=== PATIENT | female | born 1985 | race Caucasian/White ===

== ENCOUNTER 2023-09-01 09:04 | Emergency (ER) | payer SELFPAY ==
[2023-09-01] VITALS (11 sets, daily range): BP systolic 181–226; BP diastolic 91–129; PULSE 54–88; RESP 14–21; TEMP 36.2; O2SAT 96–100
--- NOTE | ~2023-09-01 | CT_ITS ---
CT of the Abdomen and Pelvis: Indication: Abdominal pain Technique: 2.5 mm axial scans were obtained through the abdomen and pelvis following intravenous adm inistration of 100 cc of Omnipaque 350. Dose reduction technique was used on this scan by utilizing a utomated exposure control and iterative reconstruction technique. The dose-length product (DLP) was 4 76.50 mGy-cm. Findings: Scans through the lung bases are unremarkable. The liver, spleen, pancreas, gallbladder, adrenals and left kidney are within normal limits. There is a 3 mm right UVJ stone with mild right hydroureteronephrosis and right perinephric fluid. No evidenc e of aortic aneurysm. No lymphadenopathy. No bowel obstruction or bowel wall thickening. There is no evidence to suggest acute appendicitis. Images through the pelvis were performed. Urinary bladder unremarkable. No adnexal mass seen. No asci esequiel. Impression: 3 mm right UVJ stone with mild right hydroureteronephrosis and right perinephric fluid. Calyceal rupt ure is a consideration. Reviewed, dictated and finalized at location . CTOR OF DISTANCE LEARNING Impression: 3 mm right UVJ stone with mild right hydroureteronephrosis and right perinephri c fluid. Calyceal rupture is a consideration.
[2023-09-01 10:30] LABS: Estimated CRCL calculation 77 ml/min; Estimated Glomerular Filt Rate > 60
[2023-09-01 10:50] LABS: Basophils Absolute Auto 0.1 K/mm3 (0.0-0.1); Basophils Percent Auto 0.3 % (0.2-1.2); Eosinophils Absolute Auto 0.1 K/mm3 (0-0.3); Eosinophils Percent Auto 0.5 % (0-4.4); Hemoglobin 13.6 g/dL (12.0-15.0); Immature Granulocyte Absolute 0.08 K/mm3 (0.00-0.031); Immature Granulocyte Percent A 0.5 % (0-0.5); Lymphocytes Absolute Auto 1.46 K/mm3 (0.9-3.2); Lymphocytes Percent Auto 8.4 % (18.3-44.2); Mean Corpuscular HGB Conc 31.6 g/dl (32-36); Mean Corpuscular Hemoglobin 29.2 pg (26-34); Mean Corpuscular Volume 92.5 fl (80-100); Mean Platelet Volume 10.9 fl (7.4-10.4); Monocytes Absolute Auto 0.8 K/mm3 (0.1-0.6); Monocytes Percent Auto 4.6 % (2.6-8.5); Neutrophils Absolute Auto 14.8 K/mm3 (1.3-6.7); Neutrophils Percent Auto 85.7 % (45.5-73.1); Platelet Count Result 346 k/mm3 (150-375); Red Blood Count 4.65 M/mm3 (4.2-5.4); Red Cell Distribution Width 13.8 % (11.5-14.5); White Blood Count 17.3 K/mm3 (4.5-10.0)
--- NOTE | 2023-09-01 10:52 | ED.ABDPAIN ---
HPI - Abdominal Pain General Chief Complaint: Abdominal Pain Stated Complaint: abd pain Time Seen by Provider: 09/01/23 10:08 Source: patient Limitations: no limitations History of Present Illness HPI narrative: Patient is a 38-year-old female presents to the emergency department complaining of abdominal pain. Patient states the pain started around 7:00 a.m. this morning while lying in bed resting comfortably woke her from sleep, feels like a stabbing pain with intermittent cramps, overall the pain is constant, denies any history of this pain, has not tried anything for the pain, denies radiation of the pain, has understanding making the pain better or worse and overall the pain is located at her right lower quadrant and flank region. Patient is to associated nausea without any vomiting. Patient denies history of kidney stones. Patient denies dysuria, hematuria, urinary frequency, diarrhea, melena, hematochezia, recent injuries, fever, chest pain, shortness of breath, cough, numbness, weakness. Patient was her last menstrual period was approximately 1 week ago. Patient notes her last meal was last night. Related Data Allergies Allergy/AdvReac Type Severity Reaction Status Date / Time No Known Allergies Allergy Verified 09/01/23 09:04 Review of Systems Review of Systems: A 10 system review of systems was completed on the patient and is negative except for what is stated in the HPI. Nursing and ancillary documentation was reviewed. PMFSH Comments At time of signature, I have reviewed and agree with nursing past medical, surgical, social and family history unless otherwise noted. Please see the nursing chart for further information. There is no relevant family history pertinent to the presenting complaint. Exam Narrative: CONST: mild acute distress. Well nourished. HENMT: Head is normocephalic and atraumatic. Dry mucous membranes. No posterior oropharynx erythema. EYES: No conjunctival icterus, injection, or pallor. PERRL. NECK: No meningeal signs. RESP: Able to speak in full sentences. Normal respiratory effort. CTAB. CARDIO: Regular rate. Regular rhythm. 2+ DP and radial pulses bilaterally. GI: Nondistended. No tenderness to palpation. Soft. No McBurney's point tenderness palpation. Negative Li sign. No Rovsing's or obturator or psoas sign. No palpable masses or hernias. : No CVA tenderness to palpation. SKIN: No rashes or lesions noted on exposed skin. NEURO: Oriented x3. Moves all extremities. EXTREM/MSK/BACK: No pedal edema. PSYCH: Normal affect. Course Vital Signs Vital signs: Vital Signs Temperature 97.2 F L 09/01/23 09:59 Pulse Rate 88 09/01/23 09:59 Respiratory Rate 18 09/01/23 09:59 Blood Pressure 213/129 H 09/01/23 09:59 Pulse Oximetry 100 09/01/23 09:59 Oxygen Delivery Room Air 09/01/23 09:59 Temperature 97.2 F L 09/01/23 09:59 Pulse Rate 88 09/01/23 09:59 Respiratory Rate 18 09/01/23 09:59 Blood Pressure 213/129 H 09/01/23 09:59 Pulse Oximetry 100 09/01/23 09:59 Oxygen Delivery Room Air 09/01/23 09:59 MDM - Abdominal Pain MDM Narrative Medical decision making narrative: Patient presents with the above complaint. Initial vitals are remarkable for hypertension and otherwise no significant abnormalities. Physical examination as noted above. Plan discussed: laboratory analysis, CT abdomen pelvis with contrast, Zofran 4 mg IV push, Toradol 15 mg IV push, 1 L bolus IV fluids. I spoke with Urology regarding the CT of the abdomen pelvis findings in the note that this is likely an incidental finding in regard to the possible ruptured calyx and do not feel as though this is a true ruptured calyx. Patient was reassessed at the bedside. Patient is resting comfortably in no acute distress, pain is controlled, vital signs stable. The patient has remained stable throughout the entire ED visit. Counseled patient regarding diagnostic resu
[2023-09-01 10:54] LABS: Appearance Urine Clear (Clear); Bacteria Urine None Seen /hpf; Bilirubin Urine Negative (Negative); Blood Urine Trace (Negative); Color Urine Yellow (Yellow); Glucose Urine UA Negative (Negative); Ketones Urine Negative (Negative); Leukocyte Esterase Ur Negative LEU/UL (Negative); Nitrate Urine Negative (Negative); Non Pathogenic Casts 0-2; Protein Urine Negative (Negative); Specific Grav Ur 1.016 (1.001-1.035); Squamous Epithelial Cell Urine None seen /hpf (Few); Urobilinogen Urine 0.2 mg/dL (<2.0); WBC Urine 0-5 /hpf; pH Urine 7.5 (5.0-9.0)
[2023-09-01 10:59] LABS: Alanine Aminotransferase 25 U/L (6-35); Albumin Level 4.6 g/dL (3.5-5.1); Alkaline Phosphatase 71 U/L (38-126); Anion Gap 7 mmol/L (8-16); Aspartate Amino Transferase 24 U/L (14-36); Bilirubin,Total 0.5 mg/dL (0.2-1.3); Blood Urea Nitrogen 12 mg/dL (7-17); Calcium 9.3 mg/dL (8.4-10.2); Carbon Dioxide 26 mmol/L (22-30); Chloride 103 mmol/L (98-107); Estimated CRCL calculation 77 ml/min; Estimated Glomerular Filt Rate > 60; Glucose 113 mg/dL (65-110); Lactic Acid Reflex 1.3 mmol/L (0.7-2.0); Lipase 110 U/L (23-300); Sodium 136 mmol/L (137-145)
[2023-09-01 11:02] LABS: Add Urine Microscopic? YES
[2023-09-01] MEDS: SODIUM CHLORIDE 0.9% IV 1,000 ML 999 ML IV CONT (11:15)
[2023-09-01] MEDS: ONDANSETRON INJ 4 MG/2 ML VIAL IV PUSH (11:16)
[2023-09-01] MEDS: KETOROLAC 15 MG/ML VIAL (*BKC) IV PUSH (11:17)
[2023-09-01 11:34] LABS: INR 0.9; Prothrombin Time 12.4 Seconds (11.1-14.7)
[2023-09-01 11:35] LABS: Partial Thromboplastin Time 29.1 SECONDS (22.3-36.8)
[2023-09-01 11:42] LABS: Lactic Acid Reflex 1.2 mmol/L (0.7-2.0)
[2023-09-01 11:45] LABS: CRP < 0.5 mg/dL (<1.0); Magnesium 1.9 mg/dL (1.6-2.3)
--- NOTE | 2023-09-01 12:20 | PC.NURSE ---
2 urine strainers and hat given to pt with education on how to catch and strain urine.
[2023-09-01] MEDS: TAMSULOSIN HCL 0.4 MG CAPSULE PO (12:24)
[2023-09-01 12:34] LABS: Pregnancy On Board Control Positive; Urine Pregnancy Test Negative
== END 2023-09-01 12:51 | disposition home or self-care (01) ==
PROVIDERS: Emergency Provider Student in an Organized Health Care Education/Training Program
DX: N20.1 Calculus of ureter (principal)
CPT/HCPCS: 74177; 80053; 81001; 81025; 83605; 83690; 83735; 85025; 85610; 85730; 86140; 96361; 96374; 96375; 99284; A9270; J1885; J2405; J7030; Q9967

== ENCOUNTER 2025-02-03 09:13 | Emergency (ER) | payer SELFPAY ==
--- OUTSIDE RECORDS SUMMARY | 2025-02-03 09:15 | XMS_ITS | Clinical Summary ---
Author Organization [facility] Address [address] [place] [address] Care Team Providers Care Recruiting Scheduler Name Role Phone Unavailable Primary Care Provider Unavailabl e Source Comments [facility],non-owned Affiliates and Associated Physician Practices is amultiple site organization consisting of ambulatory clinics and hospital sitesin [place], [place], [place] and [place]. This disclosure is being madepursuant to the Care Everywhere program and may not contain all information available regarding this patient. Last updated 18.[facility] [place] Social History Tobacco Use Types Packs/Day Years Used Date Smoking Tobacco: Never Assessed Comments No Sex and Gender Information Value Date Recorded Sex Assigned at Not on file Legal Sex Female 1:49 PM [employer] Gender Identity Not on file Sexual Orientation Not on file Plan of Treatment Health Maintenance Due Date Last Done Comments HIV SCREENING 2001 HEPATITIS C SCREENING 02/29/2004 DTAP/TDAP/TD VACCINES (1 - Tdap) 2005 HEPATITIS B VACCINE (1 of 3 - 19+ 3-dose series) 2005 COVID-19 VACCINE ( - 2023-2 5 season) 2024 DEPRESSION SCREENING 09/14/2024 INFLUENZA VACCINE (Season Ended) 2025 ZOSTER VACCINE (1 of 2) 2036 HIB VACCINE Aged Out No longer eligi ble based on patient's age to complete this topic HPV VACCINE Aged Out No longer eligi ble based on patient's age to complete this topic MENINGOCOCCAL (Group B) VACC INE SHARED DECISION-MAKING Aged Out No longer eligibl e based on patient's age to complete this topic MENINGOCOCCAL GROUPS A/C/Y/W VACCINE Aged Out No longer eligible b ased on patient's age to complete this topic PNEUMOCOCCAL VACCINE Aged Out No long er eligible based on patient's age to complete this topic
[2025-02-03 09:31] VITALS: BP 162/102; PULSE 89; RESP 18; TEMP 36.6; O2SAT 100
--- OUTSIDE RECORDS SUMMARY | 2025-02-03 09:56 | XMS_ITS | Clinical Summary ---
Author Organization [facility] Address [address] [place] [address] Care Team Providers Care Product Marketing Consultant Name Role Phone Unavailable Primary Care Provider Unavailabl e Source Comments [facility],non-owned Affiliates and Associated Physician Practices is amultiple site organization consisting of ambulatory clinics and hospital sitesin [place], [place], [place] and [place]. This disclosure is being madepursuant to the Care Everywhere program and may not contain all information available regarding this patient. 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
--- NOTE | 2025-02-03 10:00 | ED.SKABFB ---
HPI - Skin/Abscess/Foreign Bdy General Chief complaint: Skin/Abscess/Foreign Body Stated complaint: I have something on my butt' Time Seen by Provider: 02/03/25 09:19 History of Present Illness HPI narrative: Patient is a 31 year female who presents to the with a thing on my butt. She reports she 1st noticed it yesterday. Patient reports it causing her a lot of discomfort. She denies recent fevers, urinary symptoms, or noticeable drainage. Patient reports she has never had an abscess or cyst on her buttocks before. She denies any other medical history relevant to this ER visit. Related Data Allergies Allergy/AdvReac Type Severity Reaction Status Date / Time No Known Allergies Allergy Verified 02/03/25 09:34 Review of Systems Review of Systems: All systems reviewed & are unremarkable except as noted in HPI and below Exam Narrative: GENERAL: Well appearing, well-nourished, non-toxic, in no acute distress. HEAD: Normocephalic, atraumatic. NECK: Supple. No adenopathy, no masses. RESPIRATORY: Airway patent, respirations nonlabored. Clear to auscultation bilaterally, no rales, rhonchi, wheezing. CARDIOVASCULAR: Regular rate and rhythm without murmurs, rubs, or gallops. Peripheral pulses 2+ and equal bilaterally. ABDOMINAL: Soft, nontender, nondistended, no hepatosplenomegaly. Normoactive BS. MUSCULOSKELETAL: Moves all extremities. Strength/ROM intact without gross deformities. SKIN: Warm, dry, normal color. No rashes. 1cm round palpable abscess on L buttock, reddened, draining creamy/brown, malodorous pus. NEURO: A&O X3. Speech clear. Cranial nerves II-XII intact. No ataxic movements. PSYCHIATRIC: Appropriate mood and affect. Normal interaction. Course Vital Signs Vital signs: Vital Signs Temperature 36.6 C 02/03/25 09:31 Pulse Rate 89 02/03/25 09:31 Respiratory Rate 18 02/03/25 09:31 Blood Pressure 162/102 H 02/03/25 09:31 Pulse Oximetry 100 02/03/25 09:31 Oxygen Delivery Room Air 02/03/25 09:31 Temperature 36.6 C 02/03/25 09:31 Pulse Rate 89 02/03/25 09:31 Respiratory Rate 18 02/03/25 09:31 Blood Pressure 162/102 H 02/03/25 09:31 Pulse Oximetry 100 02/03/25 09:31 Oxygen Delivery Room Air 02/03/25 09:31 MDM - Skin/Abscess/Foreign Bdy MDM Narrative Medical decision making narrative: Patient is a 31 year female who presents to the with a thing on my butt. She reports she 1st noticed it yesterday. Patient reports it causing her a lot of discomfort. She denies recent fevers, urinary symptoms, or noticeable drainage. Patient reports she has never had an abscess or cyst on her buttocks before. She denies any other medical history relevant to this ER visit. Upon examination, pt's abscess has started draining. A moderate amount of pus was expressed with palpation. Sample of pus was collected and sent to the lab for a culture. More drainage was expressed, then wound was covered with a 4x4 and paper tape. Medications Ordered: [place] PO, Bactrim PO Diagnosis: abscess Patient Education/Shared MDM: Results of examination shared with patient. She endorses mild improvement of symptoms following medication administration. Patient strongly advised to complete her full dose of antibiotics and follow-up with her PCP as soon as possible. She will be discharged home with a prescription for Bactrim. Strict return precautions provided. Patient verbalized understanding and is in agreement with plan. Vital signs stable at time of discharge. All questions answered. Differential Diagnosis Differential diagnosis: Likely abscess of skin or subcutaneous tissue, urticaria, cellulitis and contact dermatitis Discharge Plan Discharge Clinical Impression: Abscess of skin or subcutaneous tissue Patient Disposition: Home Condition: Stable Instructions: Antibiotic Form Additional Instructions: Please return to the ER with any worsening symptoms. Follow-up with primary care provider as soon as possible. Take all medications as prescribed, including regularly scheduled medications. You may use Tylenol and or ibuprofen for pain control. Please complete your full dose of antibiotics. Patient Language: Greenlandic Prescriptions: New sulfamethoxazole-trimethoprim [Bactrim DS] 800-160 mg tablet 1 tablet PO Q12H Qty: 14 0RF No Action ketorolac 10 mg tablet 10 mg PO Q6H 5 Days Qty: 20 0RF Follow-up/Referrals: Nikos Delong MD [Physician] - (primary care) UNKNOWN,DOCTOR [Primary Care Provider] - Time of Disposition: 10:45
[2025-02-03] MEDS: HYDROcodone/acetaminophen (*CRX) 5-325 MG TABLET 1 TAB PO (10:19)
[2025-02-03] MEDS: SULFAMETHOXAZOLE/TRIMETHOPRIM 800/160 MG DS TABLET 1 TAB PO (10:19)
[2025-02-03 10:56] VITALS: BP 157/110; PULSE 93; RESP 16; O2SAT 98
== END 2025-02-03 10:57 | disposition home or self-care (01) ==
PROVIDERS: Emergency Provider Registered Nurse
DX: L02.31 Cutaneous abscess of buttock (principal)
CPT/HCPCS: 87070; 87075; 87181; 87205; 99283; A9270